=== PATIENT | male | born 1975 | race Caucasian/White ===

== ENCOUNTER 2022-03-09 20:40 | Emergency (ER) | payer BC ==
[2022-03-09] MEDS ORDERED: Morphine 2 MG/ML SYRINGE IVPUSH ONE (20:57)
[2022-04-02 13:55] LABS: CHLORIDE,CL 105 mEq/L (98-106); ESTIMATED GFR 62 mL/min (>=60); SODIUM,NA 141 mEq/L (136-145)
== END 2022-03-09 21:40 | disposition home or self-care (01) ==
LOC: CC.ED 20:40
DX: R07.9 Chest pain, unspecified (principal); Z20.822 Contact with and (suspected) exposure to COVID-19
CPT/HCPCS: 36415; 71045; 80053; 83735; 84484; 85025; 85379; 85610; 93005; 96374; 99285-25; J2270; U0002

== ENCOUNTER 2023-07-16 09:03 | Day surgery (SDC) | payer BC ==
[2023-07-16] MEDS: Lactated Ringers 1,000 ML IV SCH (09:42)
== END 2023-07-16 11:35 | disposition home or self-care (01) ==
LOC: CC.SDS 09:03
PROVIDERS: ATTEND Family Medicine
DX: Z12.11 Encounter for screening for malignant neoplasm of colon (principal); I10 Essential (primary) hypertension; J45.909 Unspecified asthma, uncomplicated; E78.1 Pure hyperglyceridemia; E34.9 Endocrine disorder, unspecified; Z79.899 Other long term (current) drug therapy
CPT/HCPCS: J7120